=== PATIENT | female | born 1930 | race Caucasian/White ===

== ENCOUNTER 2017-01-03 07:12 | Day surgery (SDC) | payer MEDICARE, BC ==
[~2017-01-03] VITALS: Ht 160 cm; Wt 72.2 kg
[~2017-01-03 07:12] MED LIST: ACET-2723 PO; AMLO5TAB2 PO; CALC600T12 PO; CARV12.52 PO; ESTR0.624 PO; MULT-37 PO
--- OUTSIDE RECORDS SUMMARY | 2017-01-03 07:15 | XMS REPORT | Continuity of Care Document ---
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 2 Skin Rashes/Hives 07/24/2016 Yes SILICONE 14600 2 Skin Rashes/Hives 10/02/2016 Medications Medication Packaging Start Date Stop Date Route Dosage Sig DEXAMETHASONE 10MG/1ML VIAL VL 07/24/2016 07/24/2016 EPD ONCE BUPIVACAINE 0.25% INJ [10 ML] VL 07/24/2016 07/24/2017 ID PRE- OP LIDOCAINE 1% MPF INJ (5ML) VL 07/24/2016 07/24/2016 ID ONCE LIDOCAINE 1% MPF INJ (5ML) VL 07/24/2016 07/24/2017 ID PRN MIDAZOLAM 2MG/2ML INJ VL 08/14/2016 08/14/2017 IV ASDIR methylPREDNISolone ACETATE 80MG/1ML INJ VL 08/14/20162016 IT ASDIR fentaNYL 100 MCG/2ML INJ AMP 08/14/2016 08/14/2017 IV ASDIR DEXAMETHASONE 4MG/1ML VIAL SDV 08/14/2016 08/14/2017 IT ASDIR LIDOCAINE 1% MPF INJ (5ML) VL 09/26/2016 09/26/2017 ID ASDIR LIDOCAINE 1% MPF INJ (30ML) VL 09/26/2016 09/26/2017 ID ASDIR DEXAMETHASONE 10MG/1ML VIAL VL 09/26/2016 09/26/2017 EPD ASDIR methylPREDNISolone ACETATE 80MG/1ML INJ VL 09/26/20162016 EPD ASDIR BUPIVACAINE 0.25% INJ [10 ML] VL 09/26/2016 09/26/2017 EPD ASDIR LIDOCAINE 1% MPF INJ (30ML) VL 10/02/2016 10/02/2016 Unknown ONCE methylPREDNISolone ACETATE 80MG/1ML INJ VL 10/02/20162015 IM ONCE BUPIVACAINE 0.25% INJ [10 ML] VL 10/02/2016 10/02/2016 ID ONCE LIDOCAINE 1% MPF INJ (30ML) VL 10/02/2016 10/02/2017 ID ASDIR methylPREDNISolone ACETATE 80MG/1ML INJ VL 10/02/20162016 EPD ASDIR BUPIVACAINE 0.25% INJ [10 ML] VL 10/02/2016 10/02/2017 EPD ASDIR Problems Date Dx Coded Attending Type Code Diagnosis Diagnosed By 07/24/2016 ARIELA HARPER DF M47.26 Other spondylosis with radiculopathy, nahed 07/24/2016 ARIELA HARPER DF 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 Visit Date/Time Discharge Status Pt. Type Provider Facility Loc./Unit Complaint [id number] 03/07/2016 12:26:00 2015 12:26:00 DIS Outpatient Samantha WEEKS, Dixon Suárez [facility] W.RAD [id number] 03/23/2015 11:00:00 2014 11:00:00 CAN Outpatient Issa WEEKS, Sri Farrell [facility] W.RAC
--- OUTSIDE RECORDS SUMMARY | 2017-01-03 07:15 | XMS REPORT | Continuity of Care Document ---
Author Author [facility] Organization [facility] Address Unknown Phone Unavailable Support Name Relationship Address Phone JOSE PICKARD MD Caregiver [address] [place] [address] Unavailable TY LOPEZ MD Caregiver [address] [place] [address] Unavailable BILL CARUSO Next Of [place], [place] [id number] Insurance Providers Guarantor Pablo Samuel Address [address] [place] [address] * Email DENIED/NO TO PT PORT Payer [employer] Other Policy Number [id number] Subscriber's Name Pablo Samuel Relationship 18 Self Group Number [id number] Payer Medicare Policy Number [id number] Subscriber's Name Ckjuan josePablo Relationship 18 Self Advance Directives Directive Response Recorded Date/Time Dr Ordered Resuscitation Status Full Code 05/22/16 1:34pm Resuscitation Documents on File No 05/23/16 7:20am DPOA for Healthcare Only N UNSURE 05/23/16 7:20am Living Will No 05/23/16 7:20am Problems Active Problems Medical Problem Onset Date Status Colon adenocarcinoma Unknown Acute Medications Current Home Medications Medication Dose Units Route Directions Days Qty Instructions Start Date Acetaminophen (Tylenol Extra Strength) 500 Mg Tablet 1-2 Tab Oral Every 6 Hours as needed for Pain 04/08/15 Calcium Carbonate (Calcium) 600 Mg Tablet 2 Tab Oral Daily Lisinopril 40 Mg Tablet 40 Mg Oral Daily 04/08/15 Multivitamin (Daily Multiple Vitamin) 1 Each Tablet 1 Tab Oral Daily 04/08/15 Pramipexole Di-Hcl (Pramipexole Dihydrochloride) 0.25 Mg Tablet 0.125 Mg Oral Bedtime 03/12/15 Past Home Medications Medication Directions Ordered Status Amlodipine Besylate (Norvasc) 5 Mg Tablet, 5 Mg Oral Daily 03/03/10 Discontinued Aspirin 81 Mg Tablet, 81 Mg Oral Daily 10/04/13 Discontinued Aspirin (Aspir 81) 81 Mg Tablet.dr, 81 Mg Oral Daily 08/17/10 Discontinued Calcium Carbonate/Vitamin D3 (Vitamin D-3 400 Units Tablet) 1 Tab Tablet, 1 Tab Oral Daily 08/17/10 Discontinued Calcium Carbonate/Vitamin D3 (Calcium + D 600 Mg Tablet) 1 Tab Tablet, 1 Tab Oral Daily 03/03/10 Discontinued Estrogens,Conjugated (Premarin) 0.625 Mg Tablet, 0.625 Mg Oral Every 3RD Day 03/03/10 Discontinued Ibuprofen 200 Mg Tablet, 200 Mg Oral As Needed 08/17/10 Discontinued Lisinopril/Hydrochlorothiazide (Lisinopril-Hctz 20-12.5 Mg Tab) 1 Each Tablet, 1 Tab Oral Twice A Day 03/12/15 Discontinued Lisinopril/Hydrochlorothiazide (Lisinopril-Hctz 20-12.5 Tablet) 1 Tab Tablet, 2 Tab Oral Daily 03/03/10 Discontinued Social History Social History Problem Response Recorded Date/Time Onset Date Status Chewing Tobacco Status No 07/28/2013 9:39am Not Applicable Not Applicable Hx Substance Use No 05/22/2016 10:25am Not Applicable Not Applicable Hx Alcohol Use No 05/22/2016 10:25am Not Applicable Not Applicable Has the pt used tobacco in the last 12 months No 05/22/2016 10:25am Not Applicable Not Applicable Query Response Start Date Stop Date Smoking Status Never smoker Hospital Discharge Instructions No hospital discharge instructions. Plan of Care Discharge Date 05/23/16 10:55am Prescriptions See Medication Section Functional Status Query Response Date Recorded Ability to complete ADL's impeded by No change May 23, 2016 7:20am Allergies, Adverse Reactions, Alerts Allergen Type Severity Reaction Status Last Updated atorvastatin calcium Adverse Reaction Unknown MUSCLE CRAMPS Active Sulfa (Sulfonamide Antibiotics) Adverse Reaction Mild N/V Active 01/14/13 Iodine Allergy Unknown IV-CHEST PAIN Active 07/25/13 Codeine Adverse Reaction Unknown NAUSEA AND VOMITING Active 03/12/15 Alcohol Allergy Unknown PO ONLY-CLOSES HER THROAT; TOPICAL-NO PROBLEMS Active 07/25/13 Metoprolol Adverse Reaction Unknown INSOMNIA, ANXIETY Active 03/12/15 Silicone Allergy Unknown HIVES Active 07/25/13 Coffee Adverse Reaction Mild HEART RACES Active 01/14/13 Immunizations Query Response on File Recorded Date/Time Hx Influenza Vaccination Y fall 201405/22/16 10:25am Hx Pneumococcal Vaccination Y 201205/22/16 10:25am Hx Influenza Vaccination Y fall 201405/22/16 10:25am Vital Signs Acute Vital Signs Vital Response Date/Time Temperature (Fahrenheit) 97.6 deg F (96.8 - 99.1) 05/23/2016 9:24am Temperature (Calculated Celsius) 36.66870 degrees C (36.0 - 37.3) 05/23/2016 9:24am Temperature Source Temporal 05/23/2016 9:24am Pulse Rate (adult) 70 bpm (60 - 100) 05/23/2016 10:30am Respiratory Rate 20 breaths/min (10 - 20) 05/23/2016 10:30am O2 Sat by Pulse Oximetry 97 % (90 - 100) 05/23/2016 10:30am Oxygen Delivery Method Room Air 05/23/2016 10:30am Blood Pressure 138/70 mm Hg 05/23/2016 10:30am Blood Pressure Source Automatic Cuff 05/23/2016 10:30am Height (Feet) 5 feet 05/23/2016 7:06am Height (Inches) 3.50 inches 05/23/2016 7:06am Weight (Kilograms) 69.700 kg 05/23/2016 7:06am Body Mass Index (BMI) 26.8 05/23/2016 7:06am Results No known relevant diagnostic tests, laboratory data and/or discharge summary. Procedures Procedure Status Date Provider(s) Colonoscopy Completed 05/23/16 JOSE PICKARD MD Encounters Encounter Location Arrival/Admit Date Discharge/Depart Date Attending Provider Departed [facility] 05/23/16 6:43am 05/23/16 10 :55am JOSE PICKARD MD
--- OUTSIDE RECORDS SUMMARY | 2017-01-03 07:15 | XMS REPORT | Continuity of Care Document ---
Author Author [facility] Organization 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 Type Provider Facility Loc./Unit Complaint [id number] 03/07/2016 12:26:00 2015 12:26:00 DIS Outpatient Samantha WEEKS, Dixon Suárez [facility] W.RAD [id number] 03/23/2015 11:00:00 2014 11:00:00 CAN Outpatient Issa WEEKS, Sri Farrell [facility] W.RAC
[2017-01-03 07:39] VITALS: Ht 160 cm; Wt 72.2 kg
[2017-01-03 07:40] VITALS: BP 168/77; PULSE 66; RESP 20; TEMP 97.7; O2SAT 98
[2017-01-03] MEDS: TROPICAMIDE 1% EYE DROPS 3ml LEFT EYE SCH ×3 (08:06→08:17)
[2017-01-03] MEDS: PHENYLEPHRINE 2.5% EYE DROPS 5ml LEFT EYE SCH ×3 (08:06→08:16)
[2017-01-03] MEDS: CYCLOPENTOLATE 1% EYE DROPS 2 ML BOTTLE LEFT EYE SCH ×3 (08:06→08:17)
[2017-01-03] MEDS: GATIFLOXACIN 0.5% EYE DROPS 2.5ml LEFT EYE SCH ×3 (08:06→08:17)
--- NOTE | 2017-01-03 08:38 | ANESPREOP ---
Anesthesia Record Date and Time DATE: 01/03/17 TIME: 08:36 Pre-Op Diagnosis lt. cat. Proposed Surgical Procedure LEFT CAT. EXTRACTION Allergies: Coded Allergies: alcohol (Verified Allergy, Unknown, PO ONLY-CLOSES HER THROAT; TOPICAL-NO PROBLEMS, 01/03/17) iodine (Verified Allergy, Unknown, IV-CHEST PAIN, 01/03/17) PER H&P silicone (Verified Allergy, Unknown, HIVES, 01/03/17) PER H&P Sulfa (Sulfonamide Antibiotics) (Verified Adverse Reaction, Mild, N/V, ) coffee (Coffea arabica) (Verified Adverse Reaction, Mild, HEART RACES, ) atorvastatin calcium (Verified Adverse Reaction, Unknown, MUSCLE CRAMPS, ) codeine (Verified Adverse Reaction, Unknown, NAUSEA AND VOMITING, 01/03/17) metoprolol (Verified Adverse Reaction, Unknown, INSOMNIA, ANXIETY, 01/03/17 ) Ht/Wt/BMI Height: 5 ' 3.00 " Weight: 72.200 kg BMI: 28.2 kg/m2 Vital Signs Date Time Temp Pulse Resp B/P Pulse Ox O2 Delivery O2 Flow Rate FiO2 01/03/17 07:40 97.7 66 20 168/77 98 Room Air Medications Inpatient Medications Current Medications Medications (Trade) Dose Ordered Sig/Courtney Start Time Stop Time Status Last Admin Dose Admin Gatifloxacin (Zymaxid) 1 drop Q5M 01/03/17 15:00 01/03/17 15:11 01/03/17 08:17 1 DROP Cyclopentolate HCl (Cyclogyl 2%) 1 drop Q5M 01/03/17 15:00 01/03/17 15:00 DC Tropicamide (Mydriacyl 1% Eye Drops) 1 drop Q5M 01/03/17 15:00 01/03/17 15:11 01/03/17 08:17 1 DROP Phenylephrine HCl (Jerzy-Synephrine 2.5% Eye Drops) 1 drop Q5M 01/03/17 15:00 01/03/17 15:11 01/03/17 08:16 1 DROP Cyclopentolate HCl (Cyclate 1%) 1 drop Q5M 01/03/17 08:00 01/03/17 08:11 DC 01/03/17 08:17 1 DROP Acetaminophen (Tylenol Extra Strength) 500 Mg Tablet, 1-2 TAB PO Q6H PRN for PAIN, (Reported) Last Taken: on 01/02/17 1900 Amlodipine Besylate (Amlodipine Besylate) 5 Mg Tablet, 1 TAB PO DAILY, (Reported) Last Taken: on 01/03/17 0630 Calcium Carbonate (Calcium) 600 Mg Tablet, 2 TAB PO DAILY, (Reported) Last Taken: on Unknown Date & Time Carvedilol (Carvedilol) 12.5 Mg Tablet, 1 TAB PO BID, (Reported) Last Taken: on 01/03/17 0630 Estrogens,Conjugated (Premarin) 0.625 Mg Tablet , 1 TAB PO DAILY, (Reported) Last Taken: on 01/02/17 0900 Multivitamin (Daily Multiple Vitamin) 1 Each Tablet, 1 TAB PO DAILY, (Reported) Last Taken: on Unknown Date & Time Currently on Beta Yash: Yes Beta Yash Last Taken: carvedilol Medical/Surgical History Anesthesia PMH: Reports: *Dyspnea, *Hypertension, Arthritis, Asthma ( A CHILD ), COPD, Cancer (COLON CA-RESECTION), Hiatal Hernia, Obesity, Reflux, Thyroid Disease (PER H&P), Denies: *Angina, *Diabetes, *MA, Anesthesia Reactions (NO AIRWAY ISSUES), Blood Transfusion Reac, CHF, CVA/Stroke/TIA, Clotting Problems, Deep Vein Thrombosis, Glaucoma, Headaches, Hepatitis, Malignant Hyperthermia, Pneumonia, Renal Disease, Rheumatic Fever, Seizures, Sleep Apnea, Tuberculosis Smoking Status: Former smoker Has pt. smoked today?: No Use Chewing Tobacco?: No Second Hand Exposure: No Substance Use Type: does not use Substance last used: unknown Alcohol Intake: none HX of Last Menstrual Period: HYST. Past Surgical History Orthopedic Surgeries: Yes - OSTEOTOMY LEFT KNEE,RIGHT TOTAL HIP,RIGHT KNEE SCOPE Abdominal Surgeries: Yes - LAP ALEX, HEMICOLECTOMY Genitourinary Surgeries: Yes - CYSTOCELE 1994 Cardiac Surgeries: Yes - HEART CATH, VEIN STRIPPING Endocrine Surgeries: Yes - PARTIAL THYROIDECTOMY 1968 Reproductive Surgeries: Yes - HYSTERECTOMY 1980, BREAST REDUCTION Neurological Surgeries: No Ear Surgeries: No Nose Surgeries: No Throat Surgeries: Yes - TONSILLECTOMY Other Surgeries: Yes - COLONOSCOPIES,FACE LIFT PER H&P Anesthesia Adverse Reactions: FOUND none Family Hx of Anesthesia Advers: none Hx of Motion Sickness: No Pertinent Findings EKG Rhythm: Sinus Rhythm Physical Exam Respiratory: Bilat breath sounds equal, Lungs clear Cardiovascular: FOUND Regular rate, rhythm, FOUND No murmur Airway Assessment Mallampati Score: I TMD: 3 Fingerbreadths Neck Extension: Good Teeth: Upper Dentures, Partial Lower Dentures Overall Assessment: No Airway Concerns ASA: 2 Plan Anesthesia Plan: MAC Discussion Discussed risks/options/alternatives of anesthesia and questions answered. Patient consents. Nursing pain assessment noted. Attestation Statement Prior to the delivery of any anesthetic medication, I examined the patient, developed the plan, obtained the patient's consent and discussed the risk and benefits of the procedure with the patient/guardian. BENITEZ TRUJILLO CRNA Jan 03, 2017 08:38
[2017-01-03] MEDS ORDERED: MIDAZOLAM 2mg/2ml INJECTION ONE (10:08)
[2017-01-03] MEDS ORDERED: FENTANYL 100mcg/2ml INJECTION ONE (10:08)
[2017-01-03 10:48] VITALS: BP 151/56; PULSE 69; RESP 12; TEMP 97.3; O2SAT 95
[2017-01-03 11:00] VITALS: BP 142/65; PULSE 70; RESP 13; O2SAT 95
--- NOTE | 2017-01-03 11:00 | ANESPO ---
Post-Op Note Date 01/03/17 Time: 10:59 Status Pt Participated in Evaluation: Pt participated in person Vital Signs Date Time Temp Pulse Resp B/P Pulse Ox O2 Delivery O2 Flow Rate FiO2 01/03/17 07:40 97.7 66 20 168/77 98 Room Air Respiratory Function: Airway patent, Regular respirations Cardiovascular Function: Regular pulse Mental Status: Alert/oriented Pain Level Intensity: 0 (0) Hydration: Taking po fluids Complications during Recovery None apparent Post-Anesthesia Notes pt. bhavana. well Follow-Up Instructions Instructions Per Surgeon Additional Information none BENITEZ TRUJILLO CRNA Jan 03, 2017 11:00
[2017-01-03 11:15] VITALS: BP 123/59; PULSE 64; RESP 15; O2SAT 94
[2017-01-03 11:30] VITALS: BP 136/66; PULSE 66; RESP 20; O2SAT 95
[2017-01-03] MEDS ORDERED: LIDOCAINE 3.5% EYE GEL PF 1ml OP ONE (15:00)
[2017-01-03] MEDS ORDERED: CYCLOPENTOLATE 2% EYE DROPS 2ml LEFT EYE SCH (15:00)
[2017-01-03] MEDS ORDERED: LIDOCAINE 1% (10mg/ml) 2ml SDV INJ ONE (15:00)
[2017-01-03] MEDS ORDERED: NS FOR INJ. 20 ML VIAL INJ ONE (15:38)
[2017-01-03] MEDS ORDERED: TETRACAINE 0.5% EYE DROPS 4ml BOTTLE OP ONE (15:38)
[2017-01-03] MEDS ORDERED: EPINEPHRINE 1mg/ml Pres.Free vl IO ONE (15:38)
[2017-01-03] MEDS ORDERED: VANCOMYCIN 500 MG INJECTION IV ONE (15:38)
[2017-01-03] MEDS ORDERED: PrednisoLONE 1% EYE DROPS 5ml LEFT EYE ONE (15:38)
[2017-01-03] MEDS ORDERED: LIDOCAINE 1% (10mg/ml) 30ml SDV IJ ONE (15:38)
[2017-01-03] MEDS ORDERED: BRIMONIDINE 0.2% EYE DROPS 5ml BOTH EYES ONE (15:38)
[2017-01-03] MEDS ORDERED: ACETYLCHOLINE (MIOCHOL-E) OCULAR SYSTEM IO ONE (15:38)
--- NOTE | 2017-01-04 11:21 | OPNOTEF ---
DATE OF OPERATION 01/03/2017 PREOPERATIVE DIAGNOSIS Visually significant cataract, left eye. POSTOPERATIVE DIAGNOSIS Visually significant cataract, left eye. PROCEDURE Cataract extraction by phacoemulsification with insertion of posterior chamber intraocular lens, left eye. SURGEON Dr. Chas Rao DESCRIPTION OF PROCEDURE The patient was given topical ophthalmic dilating drops, 2.5% phenylephrine, 1% tropicamide, 1% cyclopentolate, topical antibiotic drop Zymaxid and topical 2% Xylocaine gel q. 5 minutes x 3 prior to arrival to the OR into the left eye. In the OR the area about the left eye was prepped and draped in the usual sterile fashion with topical Betadine and 5% Betadine eye drops into the left eye. The procedure began and was done entirely under the operating microscope. A sterile lid speculum was placed into the left eye and removed at the end of the procedure. Using a 1.2 mm blade, two paracentesis side ports were made approximately 180 degrees apart. 1% preservative-free lidocaine was instilled into the eye followed by Viscoat. Using a 2.4-mm keratome, a temporal clear corneal incision was made. Using a cystotome and capsulorhexis forceps, an anterior capsulotomy was made. The lens nucleus was then loosened from surrounding cortical material by hydrodissection. Phacoemulsification handpiece was then introduced into the eye and the lens nucleus was successfully phacoemulsified using 11.5 CDE units of phacoemulsification power. Hydrodissection was done again to loosen cortical material from the capsule and the irrigation-aspiration handpieces were used to strip away all cortical material. The eye was then filled with Provisc and an HOYA Lens Model #250 with a power of 20.0 diopters was inserted in the capsular bag of the left eye and centered. Viscoelastic was removed with the irrigation-aspiration handpieces. Then Miochol was instilled into the eye and the pupil came down to approximately 4 mm. 1 mg of vancomycin dissolved in 0.1 cc of normal saline was instilled into the eye. The incisions were hydrated to seal them, were tested and noted to be watertight. Drops of Zymaxid, Pred Forte and brimonidine were dropped in the left eye and a shield taped over the eye, completing the procedure. Blood loss was minimal, less than 0.1 cc. There were no complications, and the patient left the operating room in good condition. PAM
== END 2017-01-03 11:35 | disposition home or self-care (01) ==
LOC: NSC 07:12
PROVIDERS: ATTEND Ophthalmology
DX: H25.812 Combined forms of age-related cataract, left eye (principal); I10 Essential (primary) hypertension; I48.91 Unspecified atrial fibrillation; E78.5 Hyperlipidemia, unspecified; Z79.82 Long term (current) use of aspirin; Z79.899 Other long term (current) drug therapy; Z88.2 Allergy status to sulfonamides; Z87.891 Personal history of nicotine dependence; Z86.010 Personal history of colon polyps; Z90.49 Acquired absence of other specified parts of digestive tract; Z90.710 Acquired absence of both cervix and uterus; Z96.641 Presence of right artificial hip joint; Z90.89 Acquired absence of other organs
CPT/HCPCS: 66984; C1780; J0171; J2250; J3010; J3370

== ENCOUNTER → 2017-01-29 | Outpatient (CLI) | payer MEDICARE, BC ==
[2017-01-29 11:02] LABS: BASOPHILS # (AUTO) 0.1 T/MM3 (0-0.2); BASOPHILS % (AUTO) 1.6 % (0-2); EOSINOPHILS # (AUTO) 0.2 T/MM3 (0-0.5); EOSINOPHILS % (AUTO) 4.6 % (0-4); HCT - HEMATOCRIT 37.6 % (36-46); HGB - HEMOGLOBIN 12.5 GM/DL (12-16); IMMATURE GRANULOCYTE # (AUTO) 0.02 T/MM3 (0.00-0.03); IMMATURE GRANULOCYTE % (AUTO) 0.4 % (0.0-0.5); LYMPHOCYTES # (AUTO) 1.1 T/MM3 (1-4.8); LYMPHOCYTES % (AUTO) 22.9 % (23-45); MEAN CORPUSCULAR HGB 31.1 UUG (26-34); MEAN CORPUSCULAR HGB CONC(MCHC 33.2 GM/DL (31-37); MEAN CORPUSCULAR VOLUME 93.5 UM3 (80-100); MEAN PLATELET VOLUME 10.1 UM3 (9.4-12.4); MONOCYTES # (AUTO) 0.4 T/MM3 (0-0.8); MONOCYTES % (AUTO) 7.2 % (0-9.0); NEUTROPHILS #(AUTO)-ABSOLUTE 3.2 T/MM3 (1.8-7.7); NEUTROPHILS % (AUTO) 63.3 % (33-66); RED BLOOD COUNT 4.02 M/MM3 (4.00-5.20)
[2017-01-29 11:12] LABS: ALBUMIN 4.2 G/DL (3.5-5.0); ALBUMIN/GLOBULIN RATIO 1.3 RATIO (1.1-2.2); ALKALINE PHOSPHATASE 67 U/L (38-126); ALT (SGPT) 26 U/L (9-52); AST (SGOT) 35 U/L (14-36); TOTAL PROTEIN 7.5 G/DL (6.3-8.2)
--- NOTE | 2017-01-29 11:25 | DI ---
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 Findings: Subtle hypoechoic lesion in the anterior left lobe of the liver appears grossly stable and is quite difficult to visualize. This measures approximately 1.1 x 1.1 x 1.6 cm in size. This is unchanged from the prior CT and ultrasound studies. No new liver lesions. The gallbladder is surgically absent. Both the intra and extrahepatic biliary system are of normal caliber with the common duct measuring 3 mm in dimension. Visualized portions of the head and body of the pancreas are unremarkable. The right kidney is present without collecting system dilatation. The right kidney measures 9.5 cm in length. Impression: Stable appearance of the subtle hypoechoic lesion in the left lobe of liver, presumably benign given the nearly two years of interval stability. .
== END ==
LOC: IMA 09:41
PROVIDERS: ATTEND Internal Medicine Medical Oncology
DX: C18.3 Malignant neoplasm of hepatic flexure (principal); K76.89 Other specified diseases of liver; D12.9 Benign neoplasm of anus and anal canal; D12.6 Benign neoplasm of colon, unspecified
CPT/HCPCS: 36415; 80076; 82378; 85025

== ENCOUNTER 2017-02-07 07:44 | Day surgery (SDC) | payer MEDICARE, BC ==
[~2017-02-07] VITALS: Ht 160 cm; Wt 72.2 kg
--- OUTSIDE RECORDS SUMMARY | 2017-02-07 07:48 | XMS REPORT | Continuity of Care Document ---
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 Type Provider Facility Loc./Unit Complaint [id number] 03/07/2016 12:26:00 2015 12:26:00 DIS Outpatient Samantha WEEKS, Dixon Suárez [facility] W.RAD [id number] 03/23/2015 11:00:00 2014 11:00:00 CAN Outpatient Issa WEEKS, Sri Farrell [facility] W.RAC
--- OUTSIDE RECORDS SUMMARY | 2017-02-07 07:49 | XMS REPORT | Continuity of Care Document ---
Author Author [facility] Organization [facility] Address Unknown Phone Unavailable Support Name Relationship Address Phone DURGA JOYNER MD Caregiver [address] [place] [address] [address] [place] [address] Unavailable TY LOPEZ MD Caregiver [address] [place] [address] [address] [place] [address] Unavailable BILL CARUSO Next Of [place], [place] [id number] Insurance Providers Guarantor Pablo Samuel Address [address] [place] [address] Email DENIED 17 [employer]ayer [employer] Other Policy Number [id number] Subscriber's Name Pablo Samuel Relationship 18 Self Group Number [id number] Payer Medicare Policy Number [id number] Subscriber's Name Pablo Samuel Relationship 18 Self Advance Directives Directive Response Recorded Date/Time Dr Ordered Resuscitation Status Full Code 01/02/17 2:50pm Resuscitation Documents on File Yes 01/03/17 8:08am DPOA for Healthcare Only Yes 01/03/17 8:08am Living Will Yes 01/03/17 8:08am Problems Active Problems Medical Problem Onset Date Status Colon adenocarcinoma Unknown Acute Medications Current Home Medications Medication Dose Units Route Directions Days Qty Instructions Start Date Acetaminophen (Tylenol Extra Strength) 500 Mg Tablet 1-2 Tab Oral Every 6 Hours as needed for Pain 04/08/15 Amlodipine Besylate 5 Mg Tablet 1 Tab Oral Daily 30 01/02/17 Calcium Carbonate (Calcium) 600 Mg Tablet 2 Tab Oral Daily Carvedilol 12.5 Mg Tablet 1 Tab Oral Twice A Day 60 01/02/17 Estrogens,Conjugated (Premarin) 0.625 Mg Tablet 1 Tab Oral Daily 10 01/02/17 Multivitamin (Daily Multiple Vitamin) 1 Each Tablet 1 Tab Oral Daily 04/08/15 Past Home Medications Medication Directions Ordered Status Amlodipine Besylate (Norvasc) 5 Mg Tablet, 5 Mg Oral Daily 03/03/10 Discontinued Aspirin 81 Mg Tablet, 81 Mg Oral Daily 07/25/13 Discontinued Aspirin (Aspir 81) 81 Mg Tablet.dr, [...] Applicable Not Applicable Hx Substance Use No 01/02/2017 12:15pm Not Applicable Not Applicable Hx Alcohol Use No 01/02/2017 12:15pm Not Applicable Not Applicable Has the pt used tobacco in the last 12 months No 01/02/2017 2:44pm Not Applicable Not Applicable Query Response Start Date Stop Date Smoking Status Former smoker Hospital Discharge Instructions No hospital discharge instructions. Plan of Care Discharge Date 01/03/17 11:35am Prescriptions See Medication Section Functional Status Query Response Date Recorded Ability to complete ADL's impeded by No change January 03, 2017 8:08am Allergies, Adverse Reactions, Alerts Allergen Type Severity Reaction Status Last Updated atorvastatin calcium Adverse Reaction Unknown MUSCLE CRAMPS Active Sulfa (Sulfonamide Antibiotics) Adverse Reaction Mild N/V Active 01/03/17 Iodine Allergy Unknown IV-CHEST PAIN Active 01/03/17 Codeine Adverse Reaction Unknown NAUSEA AND VOMITING Active 01/03/17 Alcohol Allergy Unknown PO ONLY-CLOSES HER THROAT; TOPICAL-NO PROBLEMS Active 01/03/17 Metoprolol Adverse Reaction Unknown INSOMNIA, ANXIETY Active 01/03/17 Silicone Allergy Unknown HIVES Active 01/03/17 Coffee Adverse Reaction Mild HEART RACES Active 01/03/17 Immunizations Query Response on File Recorded Date/Time Hx Influenza Vaccination Y fall 201501/02/17 12:15pm Hx Pneumococcal Vaccination Y 201201/02/17 12:15pm Hx Influenza Vaccination Y fall 201501/02/17 12:15pm Vital Signs Acute Vital Signs Vital Response Date/Time Temperature (Fahrenheit) 97.3 deg F (96.8 - 99.1) 01/03/2017 10:48am Temperature (Calculated Celsius) 36.46886 degrees C (36.0 - 37.3) 01/03/2017 10:48am Temperature Source Temporal 01/03/2017 10:48am Pulse Rate (adult) 66 bpm (60 - 100) 01/03/2017 11:30am Respiratory Rate 20 breaths/min (10 - 20) 01/03/2017 11:30am O2 Sat by Pulse Oximetry 95 % (90 - 100) 01/03/2017 11:30am Oxygen Delivery Method Room Air 01/03/2017 11:30am Blood Pressure 136/66 mm Hg 01/03/2017 11:30am Blood Pressure Source Automatic Cuff 01/03/2017 11:30am Height (Feet) 5 feet 01/03/2017 7:39am Height (Inches) 3.00 inches 01/03/2017 7:39am Weight (Kilograms) 72.200 kg 01/03/2017 7:39am Body Mass Index (BMI) 28.2 01/03/2017 7:39am Results Laboratory Results Test Name Result Units Flags Reference Collection Date/Time Result Date/ Time Comments White Blood Count 4.9 T/MM3 4.5-11.0 10/31/2016 2:pm 10/31/2016 2: 28pm Red Blood Count 3.68 M/MM3 L 4.00-5.20 10/31/2016 2:pm 10/31/2016 2: 28pm Hemoglobin 11.5 GM/DL L 12-16 10/31/2016 2:pm 10/31/2016 2:28pm Hematocrit 35.0 % L 36-46 10/31/2016 2:21pm 10/31/2016 2:28pm Mean Corpuscular Volume 95.1 UM3 80-100 10/31/2016 2:pm 10/31/2016 2: 28pm Mean Corpuscular Hemoglobin 31.3 UUG 26-34 10/31/2016 2:2016 2:28pm Mean Corpuscular Hemoglobin Concent 32.9 GM/DL 31-37 10/31/2016 2:10/31/2016 2:28pm RDW Standard Deviation 46.9 FL 36.9-50.2 10/31/2016 2:10/31/2016 2 :28pm Platelet Count 173 T/MM3 130-400 10/31/2016 2:10/31/2016 2:28pm Mean Platelet Volume 9.9 UM3 9.4-12.4 10/31/2016 2:10/31/2016 2: 28pm Neutrophils (%) (Auto) 57.9 % 33-66 10/31/2016 2:10/31/2016 2: 28pm Lymphocytes (%) (Auto) 28.3 % 23-45 10/31/2016 2:10/31/2016 2: 28pm Monocytes (%) (Auto) 6.9 % 0-9.0 10/31/2016 2:10/31/2016 2:28pm Eosinophils (%) (Auto) 5.7 % H 0-4 10/31/2016 2:10/31/2016 2:28pm Basophils (%) (Auto) 1.0 % 0-2 10/31/2016 2:10/31/2016 2:28pm Immature Granulocyte % (Auto) 0.2 % 0.0-0.5 10/31/2016 2:2016 2:28pm Absolute Neutrophils (auto) 2.9 T/MM3 1.8-7.7 10/31/2016 2:2016 2:28pm Absolute Lymphocytes (auto) 1.4 T/MM3 1-4.8 10/31/2016 2:2016 2:28pm Absolute Monocytes (auto) 0.3 T/MM3 0-0.8 10/31/2016 2:10/31/2016 2:28pm Absolute Eosinophils (auto) 0.3 T/MM3 0-0.5 10/31/2016 2:2016 2:28pm Absolute Basophils (auto) 0.1 T/MM3 0-0.2 10/31/2016 2:10/31/2016 2:28pm Absolute Immature Granulocyte (auto 0.01 T/MM3 0.00-0.03 10/31/2016 2: 10/31/2016 2:28pm Icterus Index < 2 0-7 10/31/2016 2:10/31/2016 2:35pm Chemistry Specimen Hemolysis < 15 0-25 10/31/2016 2:10/31/2016 2 :35pm 0-25: Specimen Exhibited No Hemolysis. Turbidity < 20 0-20 10/31/2016 2:10/31/2016 2:35pm Total Bilirubin 0.60 MG/DL 0.20-1.30 10/31/2016 2:10/31/2016 2: 35pm Unconjugated Bilirubin 0.30 MG/DL 0.00-1.10 10/31/2016 2:2016 2:35pm Conjugated Bilirubin 0.00 MG/DL 0.00-0.30 10/31/2016 2:10/31/2016 2:35pm Alkaline Phosphatase 50 U/L 38-126 10/31/2016 2:10/31/2016 2:35pm Total Protein 6.8 G/DL 6.3-8.2 10/31/2016 2:10/31/2016 2:35pm Albumin 3.9 G/DL 3.5-5.0 10/31/2016 2:10/31/2016 2:35pm Globulin 2.9 G/DL 2.4-3.6 10/31/2016 2:10/31/2016 2:35pm Albumin/Globulin Ratio 1.3 RATIO 1.1-2.2 10/31/2016 2:10/31/2016 2 :35pm Aspartate Amino Transf (AST/SGOT) 28 U/L 14-36 10/31/2016 2:2016 2:35pm Alanine Aminotransferase (ALT/SGPT) 29 U/L 9-52 10/31/2016 2:10/31 2:35pm Carcinoembryonic Antigen 2.98 UG/L 0-3.0 10/31/2016 2:10/31/2016 3 :39pm Procedures Procedure Status Date Provider(s) Routine venipuncture Completed 10/31/16 Hepatic function panel Completed 10/31/16 Carcinoembryonic antigen Completed 10/31/16 Complete cbc w/auto diff wbc Completed 10/31/16 Mri brain stem w/o & w/dye Completed 12/13/16 Extracranial bilat study Completed 12/13/16 GADAVIST 10ML SDV - Contrast,Gadavist 10ml Completed 12/13/16 Cataract extraction, left Completed 01/03/17 DURGA JOYNER MD Encounters Encounter Location Arrival/Admit Date Discharge/Depart Date Attending Provider Departed Surgical Day Care [facility] 01/03/17 7:12am 01/03/17 11 :35am DURGA JOYNER MD Registered Clinic [facility] 12/13/16 7:56am TY LOPEZ MD Registered [facility] 10/31/16 1:59pm STEVEN ZIEGLER MD
--- OUTSIDE RECORDS SUMMARY | 2017-02-07 07:49 | XMS REPORT | Continuity of Care Document ---
Author Author Organization Address Unknown Phone Unavailable Allergies Active Description Code Type Severity Reaction Onset Reported/Identified Relationship to Patient Clinical Status Yes ALCOLOL ALCOLOL Drug Allergy Moderate THROAT SWELLING IF INGESTED 05/26/2013 Yes silicone silicone Drug Allergy Moderate RASH 05/26/2013 Yes Sulfa (Sulfonamide Antibiotics) Sulfa (Sulfonamide Antibiotics) Drug Allergy Unknown UNKNOWN 05/26/2013 Yes CODEINE 19057 2 Skin Rashes/Hives 07/24/2016 Yes SULFA-[employer] REPRESENTATIVE 55715 2 Skin Rashes/Hives 07/24/2016 Yes SILICONE 51637 2 Skin Rashes/Hives 10/02/2016 Medications Medication Packaging [...] Status Pt. Type Provider Facility Loc./Unit Complaint [id number] 03/07/2016 12:26:00 2015 12:26:00 DIS Outpatient Samantha WEEKS, Dixon Suárez W.RAD [id number] 03/23/2015 11:00:00 2014 11:00:00 CAN Outpatient Issa WEEKS, Sri Farrell W.RAC
[2017-02-07 08:00] VITALS: BP 152/74; PULSE 77; RESP 16; TEMP 98.1; O2SAT 94
[2017-02-07 08:04] VITALS: Ht 160 cm; Wt 72.2 kg
[2017-02-07] MEDS ORDERED: PRAM0.129 PO (08:16)
[2017-02-07] MEDS: PHENYLEPHRINE 2.5% EYE DROPS 5ml RIGHT EYE SCH ×3 (08:26→08:44)
[2017-02-07] MEDS: CYCLOPENTOLATE 1% EYE DROPS 2 ML BOTTLE RIGHT EYE SCH ×3 (08:27→08:44)
[2017-02-07] MEDS: GATIFLOXACIN 0.5% EYE DROPS 2.5ml RIGHT EYE SCH ×3 (08:27→08:44)
[2017-02-07] MEDS: TROPICAMIDE 1% EYE DROPS 3ml RIGHT EYE SCH ×3 (08:28→08:45)
[2017-02-07] MEDS ORDERED: LIDOCAINE 1% (10mg/ml) 2ml SDV INJ ONE (08:30)
--- NOTE | 2017-02-07 09:14 | ANESPREOP ---
Anesthesia Record Date and Time DATE: 02/07/17 TIME: 09:12 Proposed Surgical Procedure RIGHT CATARACT EXTRACTION Allergies: Coded Allergies: alcohol (Verified Allergy, Unknown, PO ONLY-CLOSES HER THROAT; TOPICAL-NO PROBLEMS, 01/03/17) iodine (Verified Allergy, Unknown, IV-CHEST PAIN, 01/03/17) PER H&P silicone (Verified Allergy, Unknown, HIVES, 01/03/17) PER H&P Sulfa (Sulfonamide Antibiotics) (Verified Adverse Reaction, Mild, N/V, ) coffee (Coffea arabica) (Verified Adverse Reaction, Mild, HEART RACES, ) atorvastatin calcium (Verified Adverse Reaction, Unknown, MUSCLE CRAMPS, ) codeine (Verified Adverse Reaction, Unknown, NAUSEA AND VOMITING, 01/03/17) metoprolol (Verified Adverse Reaction, Unknown, INSOMNIA, ANXIETY, 01/03/17 ) Ht/Wt/BMI Height: 5 ' 3.00 " Weight: 72.200 kg BMI: 28.2 kg/m2 Vital Signs Date Time Temp Pulse Resp B/P Pulse Ox O2 Delivery O2 Flow Rate FiO2 02/07/17 08:00 98.1 77 16 152/74 94 Room Air Medications Inpatient Medications Current Medications Medications (Trade) Dose Ordered Sig/Courtney Start Time Stop Time Status Last Admin Dose Admin Gatifloxacin (Zymaxid) 1 drop Q5M 02/07/17 15:00 02/07/17 15:11 02/07/17 08:44 1 DROP Cyclopentolate HCl (Cyclate 1%) 1 drop Q5M 02/07/17 15:00 02/07/17 15:11 02/07/17 08:44 1 DROP Tropicamide (Mydriacyl 1% Eye Drops) 1 drop Q5M 02/07/17 15:00 02/07/17 15:11 02/07/17 08:45 1 DROP Phenylephrine HCl (Jerzy-Synephrine 2.5% Eye Drops) 1 drop Q5M 02/07/17 15:00 02/07/17 15:11 02/07/17 08:44 1 DROP Acetaminophen (Tylenol Extra Strength) 500 Mg Tablet, 1-2 TAB PO Q6H PRN for PAIN, (Reported) Last Taken: on 02/06/17 Amlodipine Besylate (Amlodipine Besylate) 5 Mg Tablet, 1 TAB PO DAILY, (Reported) Last Taken: on 02/07/17 0700 Calcium Carbonate (Calcium) 600 Mg Tablet, 2 TAB PO DAILY, (Reported) Last Taken: on 02/06/17 Carvedilol (Carvedilol) 12.5 Mg Tablet, 1 TAB PO BID, (Reported) Last Taken: on 02/07/17 0700 Estrogens,Conjugated (Premarin) 0.625 Mg Tablet , 1 TAB PO DAILY, (Reported) Last Taken: on 02/04/17 Multivitamin (Daily Multiple Vitamin) 1 Each Tablet , 1 TAB PO DAILY, (Reported) Last Taken: on 01/28/17 Pramipexole Di-HCl (Pramipexole Dihydrochloride) 0.125 Mg Tablet, 0.125 MG PO HS, (Reported) Last Taken: on 02/06/17 Currently on Beta Yash: Yes Beta Yash Last Taken: 02/07/17 0700 Medical/Surgical History Anesthesia PMH: Reports: *Dyspnea, *Hypertension, Arthritis, Asthma ( A CHILD ), COPD, Cancer (COLON CA-RESECTION), Hiatal Hernia, Obesity, Reflux, Thyroid Disease (PER PAST ADMIT) Smoking Status: Former smoker (quit 56 years) Use Chewing Tobacco?: No Second Hand Exposure: No Substance Use Type: does not use Substance last used: unknown Alcohol Intake: none HX of Last Menstrual Period: HYST Past Surgical History Orthopedic Surgeries: Yes - OSTEOTOMY LEFT KNEE,RIGHT TOTAL HIP,RIGHT KNEE SCOPE Abdominal Surgeries: Yes - LAP ALEX, HEMICOLECTOMY Genitourinary Surgeries: Yes - CYSTOCELE 1994 Cardiac Surgeries: Yes - HEART CATH, VEIN STRIPPING Endocrine Surgeries: Yes - PARTIAL THYROIDECTOMY 1968 Reproductive Surgeries: Yes - HYSTERECTOMY 1980, BREAST REDUCTION Neurological Surgeries: No Ear Surgeries: No Nose Surgeries: No Throat Surgeries: Yes - TONSILLECTOMY Other Surgeries: Yes - COLONOSCOPIES,FACE LIFT PER H&P Anesthesia Adverse Reactions: FOUND none Family Hx of Anesthesia Advers: none Hx of Motion Sickness: No Pertinent Findings EKG Rhythm: Sinus Rhythm Physical Exam Respiratory: Lungs clear Cardiovascular: FOUND Regular rate, rhythm Airway Assessment Mallampati Score: I TMD: 3 Fingerbreadths Neck Extension: Fair Teeth: Upper Dentures, Partial Lower Dentures Overall Assessment: No Airway Concerns ASA: 3 Plan Anesthesia Plan: MAC Discussion Discussed risks/options/alternatives of anesthesia and questions answered. Patient consents. Nursing pain assessment noted. Present: Family Member Attestation Statement Prior to the delivery of any anesthetic medication, I examined the patient, developed the plan, obtained the patient's consent and discussed the risk and benefits of the procedure with the patient/guardian. JANE LALA CRNA Feb 07, 2017 09:14
[2017-02-07] MEDS ORDERED: MIDAZOLAM 2mg/2ml INJECTION ONE (09:24)
[2017-02-07] MEDS ORDERED: SALINE FLUSH 10ml SYRINGE ONE (09:26)
[2017-02-07 10:15] VITALS: BP 124/72; PULSE 69; RESP 16; TEMP 97.8; O2SAT 93
--- NOTE | 2017-02-07 10:19 | ANESPO ---
Post-Op Note Date 02/07/17 Time: 10:19 Status Pt Participated in Evaluation: Pt participated in person Vital Signs Date Time Temp Pulse Resp B/P Pulse Ox O2 Delivery O2 Flow Rate FiO2 02/07/17 08:00 98.1 77 16 152/74 94 Room Air Respiratory Function: Airway patent, Regular respirations Cardiovascular Function: Regular pulse Mental Status: Alert/oriented Pain Level Intensity: 0 Hydration: Taking po fluids Complications during Recovery None apparent Follow-Up Instructions Instructions Per Surgeon JANE LALA CRNA Feb 07, 2017 10:19
[2017-02-07 10:30] VITALS: BP 125/73; PULSE 71; RESP 16; O2SAT 94
[2017-02-07 10:45] VITALS: BP 122/60; PULSE 70; RESP 16; O2SAT 92
[2017-02-07] MEDS ORDERED: LIDOCAINE 3.5% EYE GEL PF 1ml OP ONE (15:00)
--- NOTE | 2017-02-07 15:32 | OPNOTEF ---
DATE OF OPERATION 02/07/2017 PREOPERATIVE AND POSTOPERATIVE DIAGNOSES Visually significant cataract, right eye. PROCEDURE Cataract extraction by phacoemulsification with insertion of posterior chamber intraocular lens, right eye. SURGEON Chas Rao M.D. DESCRIPTION OF PROCEDURE The patient was given topical ophthalmic dilating drops, 2.5% phenylephrine, 1% tropicamide, 1% Cyclopentolate, topical antibiotic drops Zymaxid and topical 2% Xylocaine gel q. 5 minutes x 3 prior to arrival to the OR into the right eye. In the OR, the area about the right eye was prepped and draped in the usual sterile fashion with topical Betadine and 5% Betadine eyedrops into the right eye. The procedure began and was done entirely under the operating microscope. A sterile lid speculum was placed into the right eye and removed at the end of the procedure. Using a 1.2-mm blade, two paracentesis side ports were made approximately 180 degrees apart. 1% preservative-free lidocaine was instilled into the eye followed by Viscoat. Using a 2.4-mm keratome, a temporal clear corneal incision was made. Using a cystotome and capsular rhexis forceps, an anterior capsulotomy was made. The lens nucleus was then loosened from surrounding cortical material by hydrodissection. The phacoemulsification handpiece was then introduced into the eye and the lens nucleus was successfully phacoemulsified using 14.50 CDE units of phacoemulsification power. Hydrodissection was done again to loosen cortical material from the capsule and the irrigation/aspiration handpieces were used to strip away all cortical material. The eye was then filled with Provisc and a Hoya lens, model #250, with a power of 20.5 diopters was inserted into the capsular bag of the right eye and centered. Viscoelastic was removed with the irrigation/aspiration handpieces. Then Miocol was instilled into the eye and the pupil came down to approximately 4.5 mm. 1 mg of vancomycin dissolved in 0.1 cc of normal saline was instilled into the eye. Incisions were hydrated to seal them and were tested, and noted to be watertight. Drops of Zymaxid, Pred Forte and Brimonidine were dropped onto the right eye and a shield taped over the eye, completing the procedure. Blood loss was minimal, less than 0.1 cc. There were no complications and the patient left the operating room in good condition. PAM
[2017-02-07] MEDS ORDERED: EPINEPHRINE 1mg/ml Pres.Free vl IO ONE (16:30)
[2017-02-07] MEDS ORDERED: VANCOMYCIN 500 MG INJECTION IV ONE (16:30)
[2017-02-07] MEDS ORDERED: ACETYLCHOLINE (MIOCHOL-E) OCULAR SYSTEM IO ONE (16:30)
[2017-02-07] MEDS ORDERED: LIDOCAINE 1% (10mg/ml) 30ml SDV IJ ONE (16:30)
[2017-02-07] MEDS ORDERED: BRIMONIDINE 0.2% EYE DROPS 5ml BOTH EYES ONE (16:30)
[2017-02-07] MEDS ORDERED: PrednisoLONE 1% EYE DROPS 5ml RIGHT EYE ONE (16:30)
[2017-02-07] MEDS ORDERED: NS FOR INJ. 20 ML VIAL INJ ONE (16:30)
[2017-02-07] MEDS ORDERED: TETRACAINE 0.5% EYE DROPS 4ml BOTTLE OP ONE (16:30)
== END 2017-02-07 11:00 | disposition home or self-care (01) ==
LOC: NSC 07:44
PROVIDERS: ATTEND Ophthalmology
DX: H26.9 Unspecified cataract (principal); I10 Essential (primary) hypertension; I48.91 Unspecified atrial fibrillation; J44.9 Chronic obstructive pulmonary disease, unspecified; E78.5 Hyperlipidemia, unspecified; Z79.899 Other long term (current) drug therapy; Z79.82 Long term (current) use of aspirin; Z88.2 Allergy status to sulfonamides; Z88.5 Allergy status to narcotic agent; Z88.8 Allergy status to other drugs, medicaments and biological substances; Z91.041 Radiographic dye allergy status; Z85.038 Personal history of other malignant neoplasm of large intestine; Z90.49 Acquired absence of other specified parts of digestive tract; Z87.891 Personal history of nicotine dependence; Z90.710 Acquired absence of both cervix and uterus; Z96.641 Presence of right artificial hip joint
CPT/HCPCS: 66984; A9270; C1780; J0171; J2250; J3370